=== PATIENT | female | born 1945 | race Caucasian/White ===

== ENCOUNTER → 2023-12-17 15:36 | Outpatient (REF) | payer MEDICARE, OTHER, SELFPAY ==
[2023-12-17 16:41] LABS: Blood Urea Nitrogen 24 mg/dl (7-17); Calcium 10.2 mg/dl (8.4-10.2); Carbon Dioxide 26 mmol/L (22-30); Chloride 102 mmol/L (98-107); Glucose 93 mg/dl (70-99); Potassium 4.3 mmol/L (3.5-5.1); Sodium 136 mmol/L (135-145); eGFR > 60.00
[2023-12-17 17:14] LABS: TSH Reflex To Free T4 1.29 uIU/ml (0.47-4.68)
[2023-12-17 18:03] LABS: Hepatitis B Surface Antigen Negative (Negative)
[2023-12-17 18:04] LABS: IgA 179 mg/dl (70-400)
[2023-12-17 18:21] LABS: Hepatitis B Core Ab, Total Reactive (Negative); Hepatitis B Surface Antibody Positive; Hepatitis C Antibody Negative (Negative)
[2023-12-19 15:13] LABS: tTG IgA Antibody 2.3 EU/ml (0-19)
== END ==
LOC: REG 15:36
PROVIDERS: ATTENDING PHYSICIAN Internal Medicine Gastroenterology; FAMILY PHYSICIAN Internal Medicine
DX: Z20.5 Contact with and (suspected) exposure to viral hepatitis (principal); R19.8 Other specified symptoms and signs involving the digestive system and abdomen
CPT/HCPCS: 36415; 80048; 82784; 83516; 84443; 86704; 86706; 86803; 87340

== ENCOUNTER → 2024-02-29 06:24 | Day surgery (SDC) | payer MEDICARE, OTHER, SELFPAY | LOC: GI 06:24 | PROVIDERS: ATTENDING PHYSICIAN Internal Medicine Gastroenterology; FAMILY PHYSICIAN Internal Medicine | DX: Z12.11 Encounter for screening for malignant neoplasm of colon (principal); K64.0 First degree hemorrhoids; K57.30 Diverticulosis of large intestine without perforation or abscess without bleeding; K44.9 Diaphragmatic hernia without obstruction or gangrene; K31.7 Polyp of stomach and duodenum; K31.89 Other diseases of stomach and duodenum; R10.84 Generalized abdominal pain; R19.7 Diarrhea, unspecified; R11.0 Nausea; K22.70 Barrett's esophagus without dysplasia; K22.89 Other specified disease of esophagus; K62.1 Rectal polyp; K63.5 Polyp of colon; K29.50 Unspecified chronic gastritis without bleeding; Z86.010 Personal history of colon polyps | CPT/HCPCS: 45380; 43239; 88305; 88342 ==

== ENCOUNTER → 2024-04-08 07:44 | Outpatient (REF) | payer MEDICARE, OTHER, SELFPAY | LOC: RAD 07:44 | PROVIDERS: ATTENDING PHYSICIAN Internal Medicine Gastroenterology; FAMILY PHYSICIAN Internal Medicine | DX: R11.0 Nausea (principal) | CPT/HCPCS: 78264; A9541 ==

== ENCOUNTER → 2024-04-12 07:45 | Outpatient (REF) | payer MEDICARE, OTHER, SELFPAY ==
[2024-04-12 08:41] LABS: % Basophils 0.4 % (0-2); % Immature Granulocytes 0.4 % (0-0.5); % Lymphocytes 37.3 % (20.5-51.1); % Neutrophils 51.9 % (42.2-75.2); Absolute Eosinophils 0.2 10^3/uL (0-0.7); Absolute Lymphocytes 2.1 10^3/uL (1.2-3.4); Absolute Monocytes 0.4 10^3/uL (0.1-0.6); Absolute Neutrophils 2.9 10^3/uL (1.4-6.5); Hematocrit 44.2 % (37.0-47.0); Hemoglobin 14.6 g/dL (12.0-16.0); Mean Corpuscular Hgb 29.5 pg (27.0-31.0); Mean Corpuscular Volume 89.3 fL (81.0-99.0); Mean Platelet Volume 10.4 fL (7.4-10.4); Nucleated Red Blood Cells % 0 %; Platelet Count 240 10^3/uL (130-400); Red Blood Cell Count 4.95 10^6/uL (4.20-5.40); Red Cell Dist. Width 13.7 % (11.5-14.5); White Blood Cell Count 5.6 10^3/uL (4.8-10.8)
[2024-04-12 10:08] LABS: ALT (SGPT) 28 U/L (0-35); AST (SGOT) 35 U/L (14-36); Albumin 4.5 g/dl (3.5-5.0); Alkaline Phosphatase 80 U/L (38-126); Blood Urea Nitrogen 19 mg/dl (7-17); Calcium 9.9 mg/dl (8.4-10.2); Carbon Dioxide 30 mmol/L (22-30); Chloride 101 mmol/L (98-107); Glucose 92 mg/dl (70-99); HDL Cholesterol 79 mg/dl; LDL Cholesterol, Calculated 99 mg/dl; Potassium 4.6 mmol/L (3.5-5.1); Sodium 140 mmol/L (135-145); Total Bilirubin 0.5 mg/dl (0.2-1.3); Total Cholesterol 200 mg/dl (50-199); Triglyceride 114 mg/dl (10-149); Very Low Density Lipoprotein 22 mg/dl (0-30); eGFR > 60.00
[2024-04-12 10:17] LABS: Glycohemoglobin (HgbA1c) 5.4 % (4.0-5.6)
[2024-04-12 10:35] LABS: TSH Reflex To Free T4 3.71 uIU/ml (0.47-4.68)
[2024-04-12 10:55] LABS: Vitamin B12 736 pg/ml (239-931)
== END ==
LOC: REG 07:45
PROVIDERS: ATTENDING PHYSICIAN Internal Medicine
DX: E03.9 Hypothyroidism, unspecified (principal); E53.8 Deficiency of other specified B group vitamins; R73.01 Impaired fasting glucose
CPT/HCPCS: 36415; 80053; 80061; 82607; 83036; 84443; 85025

== ENCOUNTER → 2024-04-15 09:11 | Outpatient (REF) | payer MEDICARE, OTHER, SELFPAY | LOC: HWRAD 09:11 | PROVIDERS: ATTENDING PHYSICIAN Internal Medicine | DX: R10.84 Generalized abdominal pain (principal); E53.8 Deficiency of other specified B group vitamins; D21.9 Benign neoplasm of connective and other soft tissue, unspecified | CPT/HCPCS: 74177; Q9967 ==

== ENCOUNTER → 2024-05-23 13:43 | Outpatient (REF) | payer MEDICARE, OTHER, SELFPAY | LOC: WDC 13:43 | PROVIDERS: ATTENDING PHYSICIAN Internal Medicine | DX: Z12.39 Encounter for other screening for malignant neoplasm of breast (principal); Z13.820 Encounter for screening for osteoporosis; N95.9 Unspecified menopausal and perimenopausal disorder; Z12.31 Encounter for screening mammogram for malignant neoplasm of breast | CPT/HCPCS: 77063; 77067; 77080 ==

== ENCOUNTER 2024-05-27 06:33 | Day surgery (SDC) | payer MEDICARE, OTHER, SELFPAY ==
[2024-05-27 11:30] VITALS: BP 144/76
[2024-05-27 11:35] VITALS: BMI 26.1
[2024-05-27 11:45] VITALS: BMI 26.1
[2024-05-27 13:48] VITALS: BP 122/74
[2024-05-27 14:00] VITALS: BP 136/72
[2024-05-27 14:15] VITALS: BP 121/80
== END 2024-05-27 14:31 | disposition home or self-care (01) ==
LOC: SDS 06:33
PROVIDERS: ATTENDING PHYSICIAN Internal Medicine Gastroenterology
DX: D13.1 Benign neoplasm of stomach (principal); K31.A19 Gastric intestinal metaplasia without dysplasia, unspecified site
CPT/HCPCS: 43251; 43239; 88305; 88342

== ENCOUNTER → 2024-11-13 08:18 | Outpatient (REF) | payer MEDICARE, OTHER, SELFPAY | LOC: RST 08:18 | PROVIDERS: ATTENDING PHYSICIAN Internal Medicine Gastroenterology; FAMILY PHYSICIAN Internal Medicine | DX: R13.19 Other dysphagia (principal) | CPT/HCPCS: 74230; 92611 ==

== ENCOUNTER 2025-05-29 06:23 | Day surgery (SDC) | payer MEDICARE, OTHER, SELFPAY | END 2025-05-29 10:02 | disposition home or self-care (01) | LOC: GI 06:23 | PROVIDERS: ATTENDING PHYSICIAN Internal Medicine Gastroenterology | DX: K29.50 Unspecified chronic gastritis without bleeding (principal); K22.89 Other specified disease of esophagus; K31.A19 Gastric intestinal metaplasia without dysplasia, unspecified site; Z87.19 Personal history of other diseases of the digestive system | CPT/HCPCS: 43239; 88305; 88341; 88342 ==